=== PATIENT | male | born 1985 ===

== ENCOUNTER 2016-09-18 18:23 | Emergency (ER) | payer SELFPAY ==
[2016-09-18 18:34] VITALS: BP 140/82; PULSE 90; RESP 18; TEMP 98.5; O2SAT 100
--- NOTE | 2016-09-18 18:46 | ED PDOC ---
Lower Extremity Pain/Injury Time Seen by Provider: 09/18/16 18:31 Chief Complaint (Nursing): Lower Extremity Problem/Injury Chief Complaint (Provider): Left leg pain History Per: Patient History/Exam Limitations: no limitations Onset/Duration Of Symptoms: Days Current Symptoms Are (Timing): Still Present Severity: Moderate Additional History Per: Patient Additional Complaint(s): The pt is a 30yo male, presents to the ED for evaluation of left foot pain. Pt reports he had sprained his left knee a couple months ago and reports pain had returned to the area. States the pain has worsened and now radiates to his foot and the sole of his feet. Pt does admit to "walking differently" due to his knee pain and states he might have been putting added pressure to the back part of his foot. He denies any new injuries or trauma to his left lower extremity. Pt also denies taking any medications for his symptoms. Currently offers no additional medical complaints. - Knee Currently Unable To: Bear Weight - Ankle/Foot Currently Unable To: Bear Weight Past Medical History Reviewed: Historical Data, Nursing Documentation, Vital Signs Vital Signs: Last Vital Signs Temp 98.5 F 09/18/16 18:31 Pulse 90 09/18/16 18:31 Resp 18 09/18/16 18:31 BP 140/82 09/18/16 18:31 Pulse Ox 100 09/18/16 18:31 - Medical History PMH: No Chronic Diseases - Surgical History Surgical History: No Surg Hx - Family History Family History: States: Unknown Family Hx - Social History Current smoker - smoking cessation education provided: No Alcohol: None Drugs: Denies - Home Medications Home Medications: Ambulatory Orders Medication Instructions Recorded Ciprofloxacin/Ciprofloxa HCl 500 mg PO BID #14 ter 12/28/14 [Ciprofloxacin] Naproxen 375 mg PO Q8 PRN #21 tab 05/28/15 Nabumetone [Relafen] 500 mg PO BID #20 tab 10/04/15 Ciprofloxacin HCl [Cipro] 500 mg PO BID #19 tablet 12/08/15 Cyclobenzaprine [Cyclobenzaprine 10 mg PO BID PRN #10 tab 12/08/15 HCl] Metronidazole [Flagyl] 500 mg PO TID #29 tablet 12/08/15 Naproxen 500 mg PO Q12 PRN #20 tab 12/08/15 Ibuprofen [Motrin Tab] 800 mg PO Q6H PRN #20 tab 09/18/16 - Allergies Allergies/Adverse Reactions: Allergies Allergy/AdvReac Type Severity Reaction Status Date / Time No Known Allergies Allergy Verified 05/28/15 14:21 Review of Systems ROS Statement: Except As Marked, All Systems Reviewed And Found Negative Musculoskeletal: Positive for: Leg Pain (left), Foot Pain (left) Physical Exam - Reviewed Nursing Documentation Reviewed: Yes Vital Signs Reviewed: Yes - Physical Exam Appears: Positive for: Well, Non-toxic, No Acute Distress Head Exam: Positive for: ATRAUMATIC, NORMAL INSPECTION, NORMOCEPHALIC Skin: Positive for: Normal Color Neck: Positive for: Normal Respiratory: Negative for: Respiratory Distress Extremity: Positive for: Normal ROM, Tenderness (tenderness to left calf noted, tenderness to plantar fascia of left foot noted). Negative for: Deformity, Swelling Neurologic/Psych: Positive for: Alert, Oriented - ECG O2 Sat by Pulse Oximetry: 100 Medical Decision Making Medical Decision Making: Time: 1844 Impression: Left plantar fascitis r/o DVT in left calf Plan: -- US Doppler LLE -- Motrin 600 mg PO Scribe Attestation: Documented by Chrissy Baxter, acting as a scribe for JORJE Davis Provider Attestation: All medical record entries made by the Scribe were at my direction and personally dictated by me. I have reviewed the chart and agree that the record accurately reflects my personal performance of the history, physical exam, medical decision making, and the department course for this patient. I have also personally directed, reviewed, and agree with the discharge instructions and disposition. Disposition - Clinical Impression Clinical Impression: Plantar tendonitis - Patient ED Disposition Is Patient to be Admitted: No Counseled Patient/Family Regarding: Diagnosis, Need For Followup, Rx Given - Disposition Referrals: Scotty Vasquez III, MD [Staff Provider] - [facility] [Outside] [facility] [Outside] Disposition: Routine/Home Disposition Time: 20:06 Condition: GOOD Prescriptions: Ibuprofen [Motrin Tab] 800 mg PO Q6H PRN #20 tab PRN Reason: Pain Instructions: Plantar Fasciitis (ED)
--- NOTE | 2016-09-18 20:49 | US ---
EXAM: US Duplex Left Lower Extremity Veins CLINICAL HISTORY: 30 years old, male; Pain; Leg, lower; Left; Additional info: Calf pain, swollen foot TECHNIQUE: Real-time ultrasound scan of the veins of the left lower extremity with color Doppler flow, spectral waveform analysis and compression. COMPARISON: No relevant prior studies available. FINDINGS: Deep veins: Normal color and spectral Doppler flow. Normal compressibility. No deep vein thrombosis from common femoral to popliteal vein. Superficial veins: No thrombosis. Soft tissues: No popliteal cyst. IMPRESSION: 1. No evidence of DVT within LEFT lower extremity. 2. Incidental/non-acute findings are described above.
== END 2016-09-18 20:36 | disposition home or self-care (01) ==
LOC: H.ER 18:23
DX: M72.2 Plantar fascial fibromatosis (principal)

== ENCOUNTER 2017-05-22 15:23 | Emergency (ER) | payer MEDICAID ==
[2017-05-22 16:09] VITALS: BP 146/94; PULSE 63; RESP 99; O2SAT 100
[2017-05-22 16:25] VITALS: TEMP 99.1
[2017-05-22] MEDS ORDERED: Sodium Chloride 0.9% 1,000 ML IV STA (16:43)
--- NOTE | 2017-05-22 16:54 | ED PDOC ---
HPI: General Adult Time Seen by Provider: 05/22/17 16:32 Chief Complaint (Nursing): Flu-like Symptoms Chief Complaint (Provider): Flu-like Symptoms History Per: Patient History/Exam Limitations: no limitations Onset/Duration Of Symptoms: Days (x 4) Current Symptoms Are (Timing): Still Present Additional Complaint(s): Chris is a 31 year old male who presents to the emergency department complaining of vomiting, diarrhea since Saturday associated with coughing and body aches. Patient states he took Motrin earlier today. Patient states he donated blood on Saturday. PMD: No Family Provider Past Medical History Reviewed: Historical Data, Nursing Documentation, Vital Signs Vital Signs: Last Vital Signs Temp 99.1 F 05/22/17 16:25 Pulse 63 05/22/17 16:06 Resp 99 H 05/22/17 16:06 BP 146/94 H 05/22/17 16:06 Pulse Ox 100 05/22/17 16:57 - Medical History PMH: No Chronic Diseases - Surgical History Other surgeries: Hand Surgery - Family History Family History: States: Unknown Family Hx - Home Medications Home Medications: Ambulatory Orders Medication Instructions Recorded Ciprofloxacin/Ciprofloxa HCl 500 mg PO BID #14 ter 12/28/14 [Ciprofloxacin] Naproxen 375 mg PO Q8 PRN #21 tab 05/28/15 Nabumetone [Relafen] 500 mg PO BID #20 tab 10/04/15 Ciprofloxacin HCl [Cipro] 500 mg PO BID #19 tablet 12/08/15 Cyclobenzaprine [Cyclobenzaprine 10 mg PO BID PRN #10 tab 12/08/15 HCl] Metronidazole [Flagyl] 500 mg PO TID #29 tablet 12/08/15 Naproxen 500 mg PO Q12 PRN #20 tab 12/08/15 Ibuprofen [Motrin Tab] 800 mg PO Q6H PRN #20 tab 09/18/16 Acetaminophen [Acetaminophen Extra 2 tab PO Q6 PRN #24 tablet 05/22/17 Strength] Ondansetron ODT [Zofran ODT] 4 mg PO Q8 PRN #10 odt 05/22/17 Ranitidine HCl [Zantac] 150 mg PO BID #10 tablet 05/22/17 - Allergies Allergies/Adverse Reactions: Allergies Allergy/AdvReac Type Severity Reaction Status Date / Time No Known Allergies Allergy Verified 05/28/15 14:21 Review of Systems ROS Statement: Except As Marked, All Systems Reviewed And Found Negative Constitutional: Positive for: Other (Body Aches) Respiratory: Positive for: Cough Gastrointestinal: Positive for: Vomiting, Diarrhea Physical Exam - Reviewed Nursing Documentation Reviewed: Yes Vital Signs Reviewed: Yes - Physical Exam Appears: Positive for: Non-toxic Head Exam: Positive for: ATRAUMATIC, NORMAL INSPECTION, NORMOCEPHALIC Skin: Positive for: Normal Color, Warm, Dry Eye Exam: Positive for: Normal appearance, EOMI, PERRL ENT: Positive for: Normal ENT Inspection Neck: Positive for: Normal Cardiovascular/Chest: Positive for: Regular Rate, Rhythm Respiratory: Positive for: Normal Breath Sounds. Negative for: Respiratory Distress Gastrointestinal/Abdominal: Positive for: Tenderness (Epigastric tenderness) Extremity: Positive for: Normal ROM. Negative for: Deformity Neurologic/Psych: Positive for: Alert, Oriented (x 3) - Laboratory Results Result Diagrams: 05/22/17 17:00 05/22/17 17:00 - ECG O2 Sat by Pulse Oximetry: 100 (RA) Pulse Ox Interpretation: Normal Medical Decision Making Medical Decision Making: Time: 16:43 Plan: - CMP - Lipase - Magnesium - CBC - Sodium Chloride 0.9% 1,000 ml IV 1,000 mls/hr - Pepcid 20 mg IVP STAT - Zofran Inj 4 mg IVP Scribe Attestation: Documented by Mervin Recio, acting as a scribe for Joanna Osborne PA-C. Provider Scribe Attestation: All medical record entries made by the Scribe were at my direction and personally dictated by me. I have reviewed the chart and agree that the record accurately reflects my personal performance of the history, physical exam, medical decision making, and the department course for this patient. I have also personally directed, reviewed, and agree with the discharge instructions and disposition. Disposition - Clinical Impression Clinical Impression: Gastroenteritis - Patient ED Disposition Is Patient to be Admitted: No - Disposition Disposition: Routine/Home Disposition Time: 17:52 Condition: FAIR Prescriptions: Acetaminophen [Acetaminophen Extra Strength] 2 tab PO Q6 PRN #24 tablet PRN Reason: Pain, Moderate (4-7) Ondansetron ODT [Zofran ODT] 4 mg PO Q8 PRN #10 odt PRN Reason: Nausea/Vomiting Ranitidine HCl [Zantac] 150 mg PO BID #10 tablet Forms: [employer] ([employer]), [facility] School/Work Excuse
[2017-05-22 17:31] LABS: BASO # 0.1 K/uL (0.0-0.2); BASO % 0.9 % (0.0-2.0); EOS # 0.3 K/uL (0.0-0.7); EOS % 3.6 % (0.0-4.0); HEMOGLOBIN 14.6 g/dL (12.0-18.0); LYMPH # 2.4 K/uL (1.0-4.3); LYMPH % 34.3 % (20.0-40.0); MEAN CELL VOLUME 88.7 fl (80.0-94.0); MEAN CORPUSCULAR HEMOGLOBIN 29.6 pg (27.0-31.0); MEAN CORPUSCULAR HGB CONC 33.4 g/dL (33.0-37.0); MEAN PLATELET VOLUME 9.1 fl (7.2-11.7); MONO # 0.5 K/uL (0.0-0.8); MONO % 7.8 % (0.0-10.0); NEUT # 3.7 K/uL (1.8-7.0); NEUT % 53.4 % (50.0-75.0); NRBC % 0.1 % (0.0-0.0); RBC 4.93 Mil/uL (4.40-5.90); WHITE BLOOD COUNT 6.9 K/uL (4.8-10.8)
[2017-05-22 17:45] LABS: ALB/GLOB RATIO 1.2 (1.0-2.1); ALBUMIN 4.2 g/dL (3.5-5.0); ALT/SGPT 88 U/L (21-72); AST/SGOT 51 U/L (17-59); BLOOD UREA NITROGEN 11 mg/dl (9-20); CALCIUM 9.9 mg/dL (8.4-10.2); GFR AFRICAN-AMERICAN > 60; GFR NON-AFRICAN AMERICAN > 60; LIPASE 143 U/L (23-300)
== END 2017-05-22 18:24 | disposition home or self-care (01) ==
LOC: H.ER 15:23
DX: K52.9 Noninfective gastroenteritis and colitis, unspecified (principal)
CPT/HCPCS: 80053; 83690; 83735; 85025; 96361; 96374; 96375; 99282; J2405; J7040